=== PATIENT | female | born 1955 | race Two or more races ===

== ENCOUNTER → 2024-07-03 | Outpatient (CLI) | payer OTHER, SELFPAY ==
--- NOTE | 2024-07-03 12:30 | XR_ITS ---
Examination: Breast ultrasound complete, bilateral Date and time of exam: July 03, 2024 1228 hours INDICATIONS: History right breast stereotactic biopsy October 26, 2004 negative for carcinoma, mammogram March 18, 2024 17 mm focal asymmetry upper outer right breast 12 mm focal asymmetry outer left breast Technique: Real-time grayscale ultrasonographic imaging bilateral breasts, including all 4 quadrants as well as nipple retroareolar and axillary regions. Findings: Sonographic images right and left breast demonstrated no cystic or solid masses IMPRESSION: BI-RADS Category 1: Negative studies
== END | disposition home or self-care (01) ==
PROVIDERS: PCP Physician Assistant; Referring Provider Physician Assistant; Visit Provider Physician Assistant
DX: R92.8 Other abnormal and inconclusive findings on diagnostic imaging of breast (principal)
CPT/HCPCS: 76641